=== PATIENT | female | born 1940 | race Caucasian/White ===

== ENCOUNTER → 2016-04-12 | Outpatient (CLI) | payer MEDICARE, BC, OTHER ==
[~2016-04-12] MED LIST: /ADVA50050 IN; ACIDCAP PO; ALBU1.25 INH; ALLO300T OR; ANUS2.5C2 TOP; ANUSOL-HC TOP; ARANESP SQ; ATOR1TAB19 PO; ATOR1TAB21 PO; BACITAB3 PO; BACL10TA2 PO; BENA25CA PO; BENA25CA2 PO; CALC0.25 PO; CALC1CAP31 PO; CIPR-250 PO; CLOBETASOL CREAM TOP; CYCL5TA PO; DEMA100T OR; DIGO0.126 OR; DILT240C3 OR; DO NOT TAKE; DRIS1CAP PO; DRISDOL PO; ECOT325T5 OR; FLAG500T PO; FLEXERIL PO; IMOD2TAB16 PO; KEFL500C7 PO; KLON0.5T PO; KLOR10TA5 PO; LASI80TA OR; LEVO100T OR; LIQUSOL OU; LOPE2TAB3 PO; LOPERAMIDE PO; MAG-OX PO; MECL25CH PO; MESA50SU PR; METO25TA2 PO; MOME50SP; NEXI40CA PO; PERC5TAB8 OR; PRAD75CA3 PO; PRED10TA PO; PRIL20CA OR; PROAAER INH; RHINOCORT AQUA; SPIR25TA2 OR; SYST1SOL OU; SYSTSOL8 OU; TORS100T PO; TORS100T12 PO; ULOR80TA PO; VITA100072 PO; XIFA200T2 PO; XIFAXAN PO; ZOFR20TA PO; [UNRECOGNIZED DRUG - CODE] PO
--- NOTE | 2016-04-12 15:18 | REP ---
CHEST, TWO VIEWS: Two views of the chest are performed and compared to prior study of 10/15/2011 and 07/16/2013. There is some infiltrate in the left retrocardiac region. There is underlying interstitial fibrotic change bilaterally. There is no change in elevation of the right hemidiaphragm. Heart does not appear to be significantly enlarged. There is some calcification of the thoracic aorta. Left dual lead pace maker is again noted. There are mild degenerative changes of the spine. IMPRESSION: Streaky left lower lobe retrocardiac infiltrate. Signed by Raul Cavazos MD 04/12/2016 05:00 P
== END ==
LOC: M SMT 14:19
PROVIDERS: ATTEND Internal Medicine Nephrology
DX: J18.9 Pneumonia, unspecified organism (principal)

== ENCOUNTER → 2016-07-15 | Outpatient (REF) | payer MEDICARE, OTHER ==
[2016-07-15 18:08] LABS: FREE T4 1.65 NG/DL (0.76-1.46)
== END ==
LOC: M LAB REF 17:00
PROVIDERS: ATTEND Internal Medicine Nephrology
DX: E03.9 Hypothyroidism, unspecified (principal)

== ENCOUNTER 2017-05-12 09:30 | Day surgery (SDC) | payer MEDICARE, BC, OTHER ==
[2017-05-12] MEDS: NS 1,000 ML IV (10:00)
[2017-05-12] MEDS ORDERED: PROPOFOL 200 MG/20 ML VIAL As Ordered (10:20)
[2017-05-12] MEDS ORDERED: LIDOCAINE 2% INJ 100 MG/5 ML SDV (FOR ANES.) As Ordered (10:20)
[2017-05-18 00:06] LABS: O+P EXAM Final report (.)
== END 2017-05-12 11:49 | disposition home or self-care (01) ==
LOC: M OPP 09:30
DX: K62.4 Stenosis of anus and rectum (principal); K91.850 Pouchitis; K59.39 Other megacolon; Z98.0 Intestinal bypass and anastomosis status; R19.7 Diarrhea, unspecified; J45.909 Unspecified asthma, uncomplicated; E03.9 Hypothyroidism, unspecified; K21.9 Gastro-esophageal reflux disease without esophagitis; I11.0 Hypertensive heart disease with heart failure; E55.9 Vitamin D deficiency, unspecified; D64.9 Anemia, unspecified; F41.9 Anxiety disorder, unspecified; E78.5 Hyperlipidemia, unspecified; N18.4 Chronic kidney disease, stage 4 (severe); I50.32 Chronic diastolic (congestive) heart failure; I48.91 Unspecified atrial fibrillation; Z79.899 Other long term (current) drug therapy; Z88.8 Allergy status to other drugs, medicaments and biological substances; Z90.49 Acquired absence of other specified parts of digestive tract; Z87.19 Personal history of other diseases of the digestive system; Z87.442 Personal history of urinary calculi; Z90.710 Acquired absence of both cervix and uterus; Z87.891 Personal history of nicotine dependence; Z95.0 Presence of cardiac pacemaker
CPT/HCPCS: 45331

== ENCOUNTER → 2017-07-04 | Outpatient (REF) | payer MEDICARE, BC, OTHER ==
[2017-07-04 19:00] LABS: FREE T4 1.37 NG/DL (0.76-1.46); THYROID STIMULATING HORMONE 0.026 uIU/ML (0.358-3.740)
== END ==
LOC: M LAB REF 18:02
DX: E03.9 Hypothyroidism, unspecified (principal)
CPT/HCPCS: 84443